=== PATIENT | female | born 2000 | race Caucasian/White ===

== ENCOUNTER 2024-07-28 19:34 | Emergency (ER) | payer SELFPAY ==
[2024-07-28 22:03] LABS: SARS-CoV-2 Antigen CONTROL BLUE LINE VIS/BG OK; SARS-CoV-2 Antigen Rapid Res Negative (Negative)
--- NOTE | 2024-07-28 22:12 | ER ---
Nurse's Notes [facility] Name: Claude Alejandre Age: 24 yrs Sex: Female : 2000 Arrival Date: 07/28/2024 Time: 19:34 Bed IW1 Private MD: Diagnosis: Acute upper respiratory infection, unspecified Presentation: 07/28 19:57 Chief complaint: Patient states: I have had a runny nose and a cough for the last day kd3 or two. My tested positive for strep just the other day, on the and now we are all sick. Coronavirus screen: Vaccine status: Patient reports being unvaccinated. Ebola Screen: No symptoms or risks identified at this time. Initial Sepsis Screen: Does the patient meet any 2 criteria? No. Patient's initial sepsis screen is negative. Does the patient have a suspected source of infection? No. Patient's initial sepsis screen is negative. Risk Assessment: Do you want to hurt yourself or someone else? Patient reports no desire to harm self or others. Onset of symptoms was July 26, 2024. 19:57 Method Of Arrival: Ambulatory kd3 19:57 Acuity: SUZANNA 4 kd3 Triage Assessment: 20:10 General: Appears in no apparent distress. Behavior is calm, cooperative. Pain: Denies kd3 pain. Historical: - Allergies: 20:00 No Known Allergies; kd3 - Immunization history:: Adult Immunizations not up to date. - Infectious Disease History:: Denies. - Social history:: Smoking status: unknown. Screenin:16 [facility] ED Fall Risk Assessment (Adult) History of falling in the last 3 months, vc1 including since admission No falls in past 3 months (0 pts) Confusion or Disorientation No (0 pts) Intoxicated or Sedated No (0 pts) Impaired Gait No (0 pts) Mobility Assist Device Used No (0 pt) Altered Elimination No (0 pt) Score/Fall Risk Level 0 - 2 = Low Risk Oriented to surroundings, Maintained a safe environment, Educated pt \T\ family on fall prevention, incl call for assistance when getting out of bed. Abuse screen: Denies threats or abuse. Nutritional screening: No deficits noted. Tuberculosis screening: No symptoms or risk factors identified. Vital Signs: 19:57 BP 119 / 79; Pulse 59; Resp 17; Temp 98.6(O); Pulse Ox 99% ; Weight 90.72 kg; Height 5 kd3 ft. 3 in. ; Pain 0/10; 19:57 Body Mass Index 35.43 (90.72 kg, 160.02 cm) kd3 19:57 Pain Scale: Adult kd3 ED Course: 19:40 Patient arrived in ED. mr 19:46 Maryjo Brasher [facility]C [facility]. kb 19:46 Isabel Gamble MD is Attending Physician. kb 20:00 Triage completed. kd3 20:10 Arm band placed on. kd3 20:38 COVID swab sent to lab. Flu and/or RSV swab sent to lab. Strep swab sent to lab. kd3 20:39 Strep Sent. kd3 20:39 SARS-COV-2 Antigen Rapid Sent. kd3 20:39 Flu Sent. kd3 22:16 No provider procedures requiring assistance completed. Patient did not have IV access vc1 during this emergency room visit. Administered Medications: No medications were administered Medication: 22:16 VIS not applicable for this client. vc1 Outcome: 22:12 Discharge ordered by . kb 22:16 Discharged to home ambulatory, with family, vc1 22:16 Condition: good 22:16 Discharge instructions given to patient, Instructed on discharge instructions, follow up and referral plans. Demonstrated understanding of instructions, follow-up care, 22:17 Patient left the ED. vc1 Signatures: Maryjo Brasher FNP-C FNP-Reina Cain, Sen Reg mr GalloCee, RN RN kd3 Tamia Ortiz RN RN vc1
--- NOTE | 2024-07-28 22:12 | EDPHYS ---
Physician Documentation [facility] Name: Claude Alejandre Age: 24 yrs Sex: Female : 2000 Arrival Date: 07/28/2024 Time: 19:34 Bed IW1 Private MD: ED Physician Isabel Gamble HPI: 07/28 20:02 This 24 yrs old Female presents to ER via Ambulatory with complaints of Cough, Runny kb Nose. 20:02 Pt is a 24 year old female who presents for cough and congestion for 2-3 days. Denies kb fever. States her recently tested positive for strep and her children have similar symptoms as well. Historical: - Allergies: 20:00 No Known Allergies; kd3 - Immunization history:: Adult Immunizations not up to date. - Infectious Disease History:: Denies. - Social history:: Smoking status: unknown. ROS: 20:02 Constitutional: As per HPI kb Exam: 21:36 Constitutional: This is a well developed, well nourished patient who is awake, alert, kb and in no acute distress. Head/Face: Normocephalic, atraumatic. ENT: Moist Mucous membranes Cardiovascular: Regular rate Respiratory: Respirations even and unlabored. No increased work of breathing. Talking in full sentences Skin: Warm, dry with normal turgor. Normal color. MS/ Extremity: Pulses equal, no cyanosis. Neurovascular intact. Full, normal range of motion. Neuro: Awake and alert, GCS 15, oriented to person, place, time, and situation. Vital Signs: 19:57 BP 119 / 79; Pulse 59; Resp 17; Temp 98.6(O); Pulse Ox 99% ; Weight 90.72 kg; Height 5 kd3 ft. 3 in. ; Pain 0/10; 19:57 Body Mass Index 35.43 (90.72 kg, 160.02 cm) kd3 19:57 Pain Scale: Adult kd3 MDM: 19:47 Medical Screening Exam initiated kb 21:36 Differential Diagnosis: Other Flu, COVID, strep, URI. Data reviewed: vital signs, kb nurses notes. Counseling: I had a detailed discussion with the patient and/or guardian regarding the historical points, exam findings, and any diagnostic results supporting the discharge/admit diagnosis, lab results, the need for outpatient follow up, a family practitioner, to return to the emergency department if symptoms worsen or persist or if there are any questions or concerns that arise at home. 22:11 I considered the following discharge prescriptions or medication management in the emergency department I discussed and recommended Over The Counter medications, Antibiotics: At this time antibiotics are not recommended, Antivirals: At this time, antivirals are not recommended. 07/28 20:02 Order name: Flu; Complete Time: 22:11 kb 07/28 20:02 Order name: SARS-COV-2 Antigen Rapid; Complete Time: 22:06 kb 07/28 20:02 Order name: Strep; Complete Time: 22:11 kb 07/28 22:12 Order name: Throat Culture EDMS Administered Medications: No medications were administered Disposition Summary: 07/28/24 22:12 Discharge Ordered Notes: Location: Home kb Condition: Stable kb Diagnosis - Acute upper respiratory infection, unspecified kb Followup: kb - With: Emergency Department - When: As needed - Reason: Worsening of condition Followup: kb - With: Private Physician - When: 2 - 3 days - Reason: Recheck today's complaints, Continuance of care, Re-evaluation by your physician Discharge Instructions: - Discharge Summary Sheet kb - Upper Respiratory Infection, Adult, [id number] kb - Viral Illness, Adult kb Forms: - Medication Reconciliation Form kb - Antibiotic Education kb - Prescription Opioid Use kb - Patient Portal Instructions kb - Leadership Thank You Letter Signatures: Dispatcher [employer] EDMaryjo Hoover, STONE GANG SAWYER-C STONE GANG SAWYER-Cee Medrano, RN RN kd3 Corrections: (The following items were deleted from the chart) 20:03 20:03 Influenza Screen (A \T\ B)+BA.LAB.BRZ ordered. EDMS EDMS 20:03 20:03 SARS-COV-2 Antigen Rapid+I.LAB.BRZ ordered. EDMS EDMS 20:03 20:03 Group A Streptococcus Rapid Sc+BA.LAB.BRZ ordered. EDMA EDMS
[2024-07-28 22:35] VITALS: BP 119/79; TEMP 98.6; O2SAT 99
== END 2024-07-28 22:17 | disposition home or self-care (01) ==
LOC: ER 19:34
DX: J06.9 Acute upper respiratory infection, unspecified (principal); Z11.52 Encounter for screening for COVID-19
CPT/HCPCS: 36415; 87070; 87081; 87804; 87811